=== PATIENT | female | born 1960 | race Caucasian/White ===

== ENCOUNTER 2016-03-28 14:07 | Emergency (ER) | payer OTHER ==
[2016-03-28] MEDS ORDERED: KETOROLAC 60 MG/2 ML VIAL IM ONE (14:49)
== END 2016-03-28 16:09 | disposition home or self-care (01) ==
LOC: ER 14:07
DX: S39.012A Strain of muscle, fascia and tendon of lower back, initial encounter (principal); M51.16 Intervertebral disc disorders with radiculopathy, lumbar region; F17.210 Nicotine dependence, cigarettes, uncomplicated; Z85.3 Personal history of malignant neoplasm of breast; Z85.89 Personal history of malignant neoplasm of other organs and systems
CPT/HCPCS: 72100; 96372